=== PATIENT | male | born 1990 | race Caucasian/White ===

== ENCOUNTER 2017-09-02 08:38 | Emergency (ER) | payer OTHER ==
[2017-09-02 08:44] VITALS: BP 131/71; PULSE 86; RESP 16; TEMP 98.8; O2SAT 97; BMI 40.3
--- NOTE | 2017-09-02 09:11 | ED PDOC ---
HPI: Skin/Bite Injury Time Seen by Provider: 09/02/17 08:59 Chief Complaint (Nursing): Abnormal Skin Integrity History Per: Patient (Itchy rash started on hand s and feet bilat last Sunday. No fever. Spread to nose and face and scalp. No buccal involvemnt. No rash on genitalia.) Onset/Duration Of Symptoms: Days (4) Current Symptoms Are (Timing): Still Present Location Of Injury: Right: Foot, Hand, Left: Foot, Hand, Anterior: Face, Foot, Hand, Posterior: Foot, Hand Quality Of Symptoms: Itching Severity: Mild Pain Scale Rating Of: 1 Past Medical History Vital Signs: Last Vital Signs Temp 98.8 F 09/02/17 08:43 Pulse 86 09/02/17 08:43 Resp 16 09/02/17 08:43 BP 131/71 09/02/17 08:43 Pulse Ox 97 09/02/17 09:13 - Medical History PMH: No Chronic Diseases - Family History Family History: Denies: Other - Home Medications Home Medications: Ambulatory Orders Medication Instructions Recorded Ibuprofen [Motrin] 600 mg PO Q8 PRN #6 tab 01/09/15 Tamsulosin [Flomax] 0.4 mg PO DAILY PRN #6 cap 01/09/15 oxyCODONE/Acetaminophen [Percocet 1 ea PO BID PRN #8 tab 01/09/15 5/325 mg Tab] DiphenhydrAMINE [Benadryl] 50 mg PO Q6 #20 cap 09/02/17 - Allergies Allergies/Adverse Reactions: Allergies Allergy/AdvReac Type Severity Reaction Status Date / Time No Known Allergies Allergy Verified 01/09/15 16:19 Review of Systems Constitutional: Negative for: Fever Skin: Positive for: Rash Physical Exam - Physical Exam Appears: Positive for: Non-toxic, No Acute Distress Skin: Positive for: Rash (papular macular rash involving hand, palms, feet and soles. Also involves ala of nares bilat. No buccal involvement.) Respiratory: Positive for: CNT, Normal Breath Sounds Neurologic/Psych: Positive for: Alert, Oriented - Laboratory Results Result Diagrams: 09/02/17 09:15 09/02/17 09:15 - ECG O2 Sat by Pulse Oximetry: 97 Disposition - Clinical Impression Clinical Impression: Hand, foot and mouth disease - Patient ED Disposition Is Patient to be Admitted: No Counseled Patient/Family Regarding: Studies Performed, Diagnosis, Need For Followup, Rx Given - Disposition Referrals: Alexis Freitas MD [Primary Care Provider] - Steven Quinonez MD [Staff Provider] - Disposition: Routine/Home Disposition Time: 10:13 Condition: FAIR Prescriptions: DiphenhydrAMINE [Benadryl] 50 mg PO Q6 #20 cap Instructions: Hand, Foot, and Mouth Disease (ED) Forms: [employer] ([place]), [facility] ED School/Work Excuse
[2017-09-02 09:22] LABS: BASO % 0.5 % (0.0-2.0); EOS # 0.1 K/uL (0.0-0.7); EOS % 1.3 % (0.0-4.0); HEMATOCRIT 42.4 % (35.0-51.0); LYMPH # 1.7 K/uL (1.0-4.3); LYMPH % 24.3 % (20.0-40.0); MEAN CELL VOLUME 86.3 fl (80.0-94.0); MEAN CORPUSCULAR HEMOGLOBIN 28.3 pg (27.0-31.0); MEAN CORPUSCULAR HGB CONC 32.8 g/dL (33.0-37.0); MEAN PLATELET VOLUME 9.2 fl (7.2-11.7); MONO # 0.7 K/uL (0.0-0.8); MONO % 9.8 % (0.0-10.0); NEUT # 4.6 K/uL (1.8-7.0); NEUT % 64.1 % (50.0-75.0); NRBC % 0.1 % (0.0-0.0); RED CELL DISTRIBUTION WIDTH 14.9 % (11.5-14.5); WHITE BLOOD COUNT 7.2 K/uL (4.8-10.8)
[2017-09-02 09:34] LABS: ALB/GLOB RATIO 1.4 (1.0-2.1); ALKALINE PHOSPHATASE 74 U/L (38-126); ALT/SGPT 46 U/L (21-72); AST/SGOT 29 U/L (17-59); BILIRUBIN,TOTAL 0.4 mg/dl (0.2-1.3); CALCIUM 9.3 mg/dL (8.4-10.2); CARBON DIOXIDE 26 mmol/L (22-30); CHLORIDE 106 mmol/L (98-107); GFR AFRICAN-AMERICAN > 60; GLUCOSE,RANDOM 106 mg/dL (75-110); POTASSIUM 4.4 MMOL/L (3.6-5.0); SODIUM 145 mmol/l (132-148); TOTAL PROTEIN 7.3 G/DL (6.3-8.2)
[2017-09-02 09:35] LABS: BLOOD UREA NITROGEN 11 mg/dl (9-20)
== END 2017-09-02 10:25 | disposition home or self-care (01) ==
LOC: H.ER 08:38
DX: B08.4 Enteroviral vesicular stomatitis with exanthem (principal)